=== PATIENT | male | born 1960 | race Caucasian/White ===

== ENCOUNTER → 2023-04-23 06:28 | Day surgery (SDC) | payer MEDICARE, OTHER, SELFPAY | LOC: GI 06:28 | PROVIDERS: ATTENDING PHYSICIAN Specialist | DX: Z12.11 Encounter for screening for malignant neoplasm of colon (principal); K57.30 Diverticulosis of large intestine without perforation or abscess without bleeding; K63.5 Polyp of colon; D12.0 Benign neoplasm of cecum; Z86.010 Personal history of colon polyps | CPT/HCPCS: 45385; 88305 ==

== ENCOUNTER → 2023-07-09 08:49 | Outpatient (REF) | payer MEDICARE, OTHER, SELFPAY | LOC: RAD 08:49 | PROVIDERS: ATTENDING PHYSICIAN Orthopaedic Surgery; FAMILY PHYSICIAN Nurse Practitioner Family | DX: Z96.612 Presence of left artificial shoulder joint (principal) | CPT/HCPCS: 73030 ==

== ENCOUNTER → 2023-08-01 08:31 | Outpatient (REF) | payer MEDICARE, OTHER, SELFPAY | LOC: RAD 08:31 | PROVIDERS: ATTENDING PHYSICIAN Nurse Practitioner Family | DX: R51.9 Headache, unspecified (principal) | CPT/HCPCS: 70450 ==

== ENCOUNTER → 2023-08-15 11:46 | Outpatient (REF) | payer MEDICARE, OTHER, SELFPAY | LOC: RAD 11:46 | PROVIDERS: ATTENDING PHYSICIAN Otolaryngology Facial Plastic Surgery; FAMILY PHYSICIAN Internal Medicine | DX: J32.0 Chronic maxillary sinusitis (principal); J34.2 Deviated nasal septum | CPT/HCPCS: 70486 ==

== ENCOUNTER → 2023-12-26 10:33 | Outpatient (REF) | payer MEDICARE, OTHER, SELFPAY | LOC: RAD 10:33 | PROVIDERS: ATTENDING PHYSICIAN Nurse Practitioner Family | DX: J45.909 Unspecified asthma, uncomplicated (principal); M54.50 Low back pain, unspecified | CPT/HCPCS: 71046 ==

== ENCOUNTER → 2024-03-10 07:29 | Outpatient (REF) | payer MEDICARE, OTHER, SELFPAY ==
[2024-03-10 10:21] LABS: Hematocrit 31.8 % (39.0-52.0); Hemoglobin 9.9 g/dL (13.0-18.0); Mean Corp Hgb Conc. 31.1 g/dL (33.0-37.0); Mean Corpuscular Hgb 27.4 pg (27.0-31.0); Mean Corpuscular Volume 88.1 fL (80.0-94.0); Mean Platelet Volume 8.6 fL (7.4-10.4); Platelet Count 538 10^3/uL (130-400); Red Blood Cell Count 3.61 10^6/uL (4.70-6.10); White Blood Cell Count 8.5 10^3/uL (4.8-10.8)
[2024-03-10 10:58] LABS: ALT (SGPT) 22 U/L (0-50); AST (SGOT) 27 U/L (17-59); Albumin 4.4 g/dl (3.5-5.0); Alkaline Phosphatase 96 U/L (38-126); Blood Urea Nitrogen 9 mg/dl (9-20); Calcium 9.1 mg/dl (8.4-10.2); Carbon Dioxide 28 mmol/L (22-30); Chloride 91 mmol/L (98-107); Glucose 98 mg/dl (70-99); Potassium 4.7 mmol/L (3.5-5.1); Sodium 130 mmol/L (135-145); Total Bilirubin 0.3 mg/dl (0.2-1.3); Total Protein 6.9 g/dl (6.3-8.2); eGFR > 60.00
== END ==
LOC: SDSPAT 07:29
PROVIDERS: ATTENDING PHYSICIAN Otolaryngology Facial Plastic Surgery; FAMILY PHYSICIAN Nurse Practitioner Family
DX: Z01.818 Encounter for other preprocedural examination (principal)
CPT/HCPCS: 36415; 80053; 85027; 87070; 93005

== ENCOUNTER 2024-03-20 06:38 | Day surgery (SDC) | payer MEDICARE, OTHER, SELFPAY ==
[2024-03-10 14:08] VITALS: BMI 29.4
[2024-03-20] VITALS (8 sets, daily range): BP systolic 118–133; BP diastolic 64–81; BMI 29.4
[2024-03-20] MEDS: NORMOSOL-R/PLASMALYTE-A 1000 IV (12:00)
== END 2024-03-20 15:20 | disposition home or self-care (01) ==
LOC: SDS 06:38
PROVIDERS: ATTENDING PHYSICIAN Otolaryngology Facial Plastic Surgery
DX: C32.0 Malignant neoplasm of glottis (principal); R49.0 Dysphonia
CPT/HCPCS: 31541; 88305; 88342

== ENCOUNTER 2024-04-01 06:25 | Outpatient (RCR) | payer MEDICARE, OTHER, SELFPAY | END 2024-04-01 23:59 | disposition home or self-care (01) | LOC: RPT 06:25 | PROVIDERS: ATTENDING PHYSICIAN Chiropractor Nutrition; FAMILY PHYSICIAN Nurse Practitioner Family | DX: Z47.89 Encounter for other orthopedic aftercare (principal); Z73.6 Limitation of activities due to disability; R26.2 Difficulty in walking, not elsewhere classified; M62.81 Muscle weakness (generalized); R26.89 Other abnormalities of gait and mobility; Z98.1 Arthrodesis status | CPT/HCPCS: 97112; 97162 ==

== ENCOUNTER → 2024-04-16 07:37 | Outpatient (REF) | payer MEDICARE, OTHER, SELFPAY | LOC: HWRCS 07:37 | PROVIDERS: ATTENDING PHYSICIAN Internal Medicine Cardiovascular Disease; FAMILY PHYSICIAN Nurse Practitioner Family | DX: R06.02 Shortness of breath (principal); R94.31 Abnormal electrocardiogram [ECG] [EKG]; I10 Essential (primary) hypertension | CPT/HCPCS: 78452; 93017; A9500 ==

== ENCOUNTER 2024-04-22 15:02 | Outpatient (RCR) | payer MEDICARE, OTHER, SELFPAY | END 2024-04-22 23:59 | disposition home or self-care (01) | LOC: RPT 15:02 | PROVIDERS: ATTENDING PHYSICIAN Chiropractor Nutrition; FAMILY PHYSICIAN Nurse Practitioner Family | DX: Z73.6 Limitation of activities due to disability; R26.2 Difficulty in walking, not elsewhere classified; M62.81 Muscle weakness (generalized); Z47.89 Encounter for other orthopedic aftercare; R26.89 Other abnormalities of gait and mobility; Z98.1 Arthrodesis status | CPT/HCPCS: 97010; 97110; 97140 ==

== ENCOUNTER 2024-05-16 12:24 | Emergency (ER) | payer MEDICARE, OTHER, SELFPAY ==
[2024-05-16 12:27] VITALS: BP 128/78
[2024-05-16 12:46] LABS: % Basophils 0.2 % (0-2); % Eosinophils 0.5 % (0-6); % Immature Granulocytes 0.4 % (0-0.5); % Lymphocytes 2.2 % (20.5-51.1); % Monocytes 6.9 % (1.7-9.3); % Neutrophils 89.8 % (42.2-75.2); Absolute Eosinophils 0.1 10^3/uL (0-0.7); Absolute Immature Granulocytes 0.1 10^3/uL (0-0.05); Absolute Lymphocytes 0.3 10^3/uL (1.2-3.4); Absolute Monocytes 0.9 10^3/uL (0.1-0.6); Absolute Neutrophils 11.4 10^3/uL (1.4-6.5); Hematocrit 30.8 % (39.0-52.0); Mean Corp Hgb Conc. 32.5 g/dL (33.0-37.0); Mean Corpuscular Hgb 25.3 pg (27.0-31.0); Mean Platelet Volume 8.4 fL (7.4-10.4); Nucleated Red Blood Cells % 0 % (-); Platelet Count 379 10^3/uL (130-400); Red Blood Cell Count 3.95 10^6/uL (4.70-6.10); Red Cell Dist. Width 16.4 % (11.5-14.5); White Blood Cell Count 12.7 10^3/uL (4.8-10.8)
[2024-05-16 12:59] LABS: Lactic Acid 1.1 mmol/L (0.7-2.0)
[2024-05-16 13:13] LABS: ALT (SGPT) 21 U/L (0-50); AST (SGOT) 26 U/L (17-59); Albumin 3.9 g/dl (3.5-5.0); Alkaline Phosphatase 84 U/L (38-126); Blood Urea Nitrogen 11 mg/dl (9-20); Calcium 9.1 mg/dl (8.4-10.2); Carbon Dioxide 26 mmol/L (22-30); Chloride 94 mmol/L (98-107); Glucose 181 mg/dl (70-99); Potassium 4.1 mmol/L (3.5-5.1); Sodium 129 mmol/L (135-145); Total Bilirubin 0.4 mg/dl (0.2-1.3); Total Protein 6.2 g/dl (6.3-8.2); eGFR > 60.00
[2024-05-16] MEDS: NSS 1000 IV (15:50)
[2024-05-16 16:04] VITALS: BP 123/79
[2024-05-16] MEDS: METAMUCIL, KONSYL 1 PACKET PO (16:55)
[2024-05-16] MEDS: COLACE 100 MG PO (16:55)
[2024-05-16] MEDS: NEURONTIN 300 MG PO (16:55)
[2024-05-16 17:22] VITALS: BP 136/81
--- NOTE | 2024-05-16 17:44 | ED.GENMED ---
History of Present Illness
General
Chief Complaint: Swallowing Problem
Time Seen by Provider: 05/16/24 15:09
History of Present Illness
History of Present Illness:
63-year-old male with history of laryngeal cancer currently undergoing radiation treatments at [facility] presents the emergency department for evaluation of voice hoarseness and copious oropharyngeal and nasal secretions over the past
several days. Reports night sweats and chills but denies objective fever. He is scheduled to restart radiation on Saturday. Was referred to the ED by his radiation oncologist for CT scans of the sinuses and neck as well as blood cultures. He is
having increasing pain making it difficult to tolerate p.o. fluids however he does have oxycodone at home and states this makes the swallowing process tolerable
Past History
Past History
ED Past Medical History: Asthma, GERD and Other (Macular degeneration, arthritis)
ED Past Surgical History: Orthopedic (Cervical and lumbar fusion)
Social History
Tobacco: Non-smoker
Personal:
Living: with family
Family History
Family History: Other (Noncontributory)
Review of Systems
Review of Systems
Allergies reviewed?: Yes
All Other Systems: ROS reviewed and negative except as documented in HPI and ROS
Phy Exam
Physical Exam
Physical Exam:
GEN: Well appearing, NAD, WDWN
HEENT: Oral mucosa moist, no scleral icterus. Markedly hoarse voice, mild stridor
Cardiac: Regular rate
Lung: No respiratory distress, no tachypnea
MSK: No gross deformity or injuries
Skin: Good color, no pallor or jaundice, no rashes
Neuro: AO x3, moves all extremities freely
Psych: Calm, cooperative
Course
Orders/Labs/Results
Orders:
Orders
05/16/24 12:38
Complete Blood Count/With Diff Urgent
Comprehensive Metabolic Panel Urgent
Lactic Acid Q4H
Comment: ON ICE, CANCEL 2ND ORDER IF FIRST LACTIC ACID LEVEL <2
Blood Culture Q20M
ZAY Source: Blood/Venous
Specimen Description:
Comment: Urgent from separate sites. If patient screens positive for possible sepsis
05/16/24 15:27
CT Neck With Iv Contrast Urgent
Comment:
Reason For Exam: hoarseness, on radiation treatments
CT Sinuses W/o Iv Contrast Urgent
Comment:
Reason For Exam: nasal discharge/active radiation
05/16/24 15:28
0.9% Sodium Chloride 1000 ml [Nss] 1,000 ml IV BOLUS
05/16/24 15:51
Blood Culture Q20M
ZAY Source: Blood/Venous
Specimen Description:
Comment: Urgent from separate sites. If patient screens positive for possible sepsis
05/16/24 16:47
Docusate Sodium [Colace] 100 mg PO NOW STA
Gabapentin [Neurontin] 300 mg PO NOW STA
Psyllium [Metamucil, Konsyl] 1 packet PO NOW STA
Abnormal Lab Results
05/16/24
12:38
WBC 12.7 H 10^3/uL
(4.8-10.8)
RBC 3.95 L 10^6/uL
(4.70-6.10)
Hgb 10.0 L g/dL
(13.0-18.0)
Hct 30.8 L %
(39.0-52.0)
MCV 78.0 L fL
(80.0-94.0)
MCH 25.3 L pg
(27.0-31.0)
MCHC 32.5 L g/dL
(33.0-37.0)
RDW 16.4 H %
(11.5-14.5)
Abs Immat Gran (auto) 0.1 H 10^3/uL
(0-0.05)
Absolute Neuts (auto) 11.4 H 10^3/uL
(1.4-6.5)
Absolute Lymphs (auto) 0.3 L 10^3/uL
(1.2-3.4)
Absolute Monos (auto) 0.9 H 10^3/uL
(0.1-0.6)
Neutrophils % 89.8 H %
(42.2-75.2)
Lymphocytes % 2.2 L %
(20.5-51.1)
Sodium 129 L mmol/L
(135-145)
Chloride 94 L mmol/L
(98-107)
Glucose 181 H mg/dl
(70-99)
Total Protein 6.2 L g/dl
(6.3-8.2)
05/16/24 12:38
05/16/24 12:38
Vital Signs
Initial and Last Documented VS:
Initial Vital Signs
Temp Pulse Resp BP Pulse Ox
99.5 F 94 16 128/78 95
05/16/24 12:27 05/16/24 12:27 05/16/24 12:27 05/16/24 12:27 05/16/24 12:27
Last Documented Vital Signs
Temp Pulse Resp BP Pulse Ox
98.9 F 86 16 136/81 92
05/16/24 16:04 05/16/24 17:58 05/16/24 12:27 05/16/24 17:22 05/16/24 17:58
MDM/Problems Addressed
MDM/Problems Addressed:
Imaging reveals anticipated postradiation changes. Labs are reassuring. Blood cultures in process. Case discussed with radiation oncology on-call at [facility], no treatment recommended at this time, will follow blood cultures
*Critical Care Note
Total Time (30-74mins, 75-104mins- exclusive of procedures): Not Applicable
ED Attending Note
-
Portions of this chart may have been created with voice recognition software.� Occasional wrong word or��sound alike� substitutions may have occurred due to the inherent limitations of voice recognition software.
Discharge Plan
Departure
Patient Disposition: Home (Routine Discharge)
Date of Disposition: 05/16/24
Time of Disposition: 17:45
Patient with high blood pressure during this ER visit?: No
Discharge Problem:
Hoarseness
Instructions: Sore Throat, Adult (DC)
Prescriptions:
No Action
valacyclovir [Valtrex] 1,000 MG tablet
1,000 mg PO DAILYPRN PRN (Reason: herpes outbreak)
albuterol sulfate [Proventil HFA] 90 MCG/PUFF HFA aerosol inhaler
1 puff inhalation PRN PRN (Reason: asthma symptoms)
alfuzosin 10 MG tablet extended release 24 hr
10 mg PO DAILY
Patient Comments:
budesonide-formoterol [Symbicort] 1 PUFF HFA aerosol inhaler
2 puff inhalation DAILY
cetirizine [Zyrtec] 10 mg Tablet
10 mg PO DAILY@1600 Qty: 0
omeprazole magnesium [Prilosec OTC] 20 MG tablet,delayed release (DR/EC)
20 mg PO DAILY
cyanocobalamin (vitamin B-12) 1,000 MCG tablet
1,000 mcg PO MOWE
cholecalciferol (vitamin D3) [Vitamin D3] 2,000 UNIT capsule
2,000 unit PO DAILY
amlodipine 2.5 mg tablet
2.5 mg PO DAILY
fluticasone propionate 50 mcg/actuation Dunbar,Suspension
1 spray INTRANASAL BID
vitamin B complex Capsule
1 cap PO TH
krill oil 500 mg Capsule
500 mg PO DAILY@1400
oxcarbazepine 150 mg Tablet
450 mg PO BID
gabapentin 600 mg Tablet
600 mg PO TID
duloxetine 20 mg Capsule, Delayed Rel Sprinkle
20 mg PO DAILY
budesonide-formoterol [Symbicort] 80-4.5 mcg/actuation Hfa Aerosol Inhaler
1 puff INHALATION HS
Tylenol
1,000 mg PO Q6H PRN (Reason: pain, headache)
fexofenadine [Mini] 180 mg Tablet
180 mg PO Q24H
aspirin 81 mg Tablet
81 mg PO DAILY
mupirocin 2 % Ointment
TOPICAL BID
Patient Comments:
patient used 2 days prior to surgery and the morning of surgery.
zolpidem 5 mg Tablet
5 mg PO HS
Patient Comments:
this is only for 2 weeks per patient.
Syfovre (PF) 15 mg /0.1 mL Solution
15 mg INTRAVITREAL DIRECTED
Rx Instructions:
every 6 weeks
Nicotinamide
600 mg PO DAILY
PreserVision AREDS
1 tab PO DAILY
Referrals:
Sharlene Kimbrough CRNP [Family Provider] -
Activity Restrictions/Additional Instructions:
Call your Oncology team at [facility] tomorrow if symptoms worsen
Your blood cultures will take up to 5 days to result. If they show any positive growth, you will be called as asked to return to the ER for admission
Interventions
Interventions:
*Risk Screen - Suicide Last Done: 05/16/24 12:27
*General Assessment Last Done: 05/16/24 15:39
*Neglect/Abuse Screening Last Done: 05/16/24 12:27
*ED- Fall Risk Assessment Last Done: 05/16/24 15:39
*ED COVID-19 Vaccine History Last Done: 05/16/24 15:39
*Nursing Disposition Last Done: 05/16/24 17:59
ED- Pulmonary Assessment Last Done: 05/16/24 16:05
Discharge Date and Time
Discharge Date/Time: 05/16/24 18:00
Print Language: DJIBOUTIAN
== END 2024-05-16 18:00 | disposition home or self-care (01) ==
LOC: EMR 12:24
PROVIDERS: Emergency Medicine; EMERGENCY PHYSICIAN Emergency Medicine; FAMILY PHYSICIAN Nurse Practitioner Family
DX: R49.0 Dysphonia (principal); C14.0 Malignant neoplasm of pharynx, unspecified; J45.909 Unspecified asthma, uncomplicated; Z92.3 Personal history of irradiation
CPT/HCPCS: 99284; 96360; 70486; 70491; 80053; 83605; 85025; 87040; Q9967

== ENCOUNTER 2024-07-23 06:06 | Outpatient (RCR) | payer MEDICARE, OTHER, SELFPAY | END 2024-07-23 23:59 | disposition home or self-care (01) | LOC: RPT 06:06 | PROVIDERS: FAMILY PHYSICIAN Internal Medicine | DX: Z47.89 Encounter for other orthopedic aftercare (principal); Z73.6 Limitation of activities due to disability; M62.81 Muscle weakness (generalized); R26.2 Difficulty in walking, not elsewhere classified; Z98.1 Arthrodesis status; Z85.89 Personal history of malignant neoplasm of other organs and systems; Z92.3 Personal history of irradiation | CPT/HCPCS: 97110; 97140; 97162 ==

== ENCOUNTER 2024-08-31 09:19 | Outpatient (RCR) | payer MEDICARE, OTHER, SELFPAY | END 2024-08-31 23:59 | disposition home or self-care (01) | LOC: RPT 09:19 | PROVIDERS: FAMILY PHYSICIAN Internal Medicine | DX: Z47.89 Encounter for other orthopedic aftercare (principal); Z73.6 Limitation of activities due to disability; M62.81 Muscle weakness (generalized); R26.2 Difficulty in walking, not elsewhere classified; Z98.1 Arthrodesis status; M43.26 Fusion of spine, lumbar region; Z85.89 Personal history of malignant neoplasm of other organs and systems; Z92.3 Personal history of irradiation | CPT/HCPCS: 97010; 97110; 97140 ==

== ENCOUNTER 2024-09-28 09:00 | Outpatient (RCR) | payer MEDICARE, OTHER, SELFPAY | END 2024-09-28 23:59 | disposition home or self-care (01) | LOC: RPT 09:00 | PROVIDERS: FAMILY PHYSICIAN Internal Medicine | DX: Z47.89 Encounter for other orthopedic aftercare (principal); M62.81 Muscle weakness (generalized); M43.26 Fusion of spine, lumbar region; Z98.1 Arthrodesis status; Z73.6 Limitation of activities due to disability; R26.2 Difficulty in walking, not elsewhere classified; Z85.89 Personal history of malignant neoplasm of other organs and systems; Z92.3 Personal history of irradiation | CPT/HCPCS: 97010; 97110; 97140 ==

== ENCOUNTER 2024-10-29 08:56 | Outpatient (RCR) | payer MEDICARE, OTHER, SELFPAY | END 2024-10-29 23:59 | disposition home or self-care (01) | LOC: RPT 08:56 | PROVIDERS: FAMILY PHYSICIAN Internal Medicine | DX: Z47.89 Encounter for other orthopedic aftercare (principal); M62.81 Muscle weakness (generalized); M43.26 Fusion of spine, lumbar region; R26.2 Difficulty in walking, not elsewhere classified; Z98.1 Arthrodesis status; Z73.9 Problem related to life management difficulty, unspecified; Z73.6 Limitation of activities due to disability; Z85.89 Personal history of malignant neoplasm of other organs and systems; Z92.3 Personal history of irradiation | CPT/HCPCS: 97010; 97110; 97140 ==

== ENCOUNTER → 2024-12-09 13:32 | Outpatient (REF) | payer MEDICARE, OTHER, SELFPAY | LOC: RAD 13:32 | PROVIDERS: ATTENDING PHYSICIAN Internal Medicine Hematology & Oncology; FAMILY PHYSICIAN Family Medicine | DX: C32.9 Malignant neoplasm of larynx, unspecified (principal); D50.8 Other iron deficiency anemias; R19.02 Left upper quadrant abdominal swelling, mass and lump | CPT/HCPCS: 74160; Q9967 ==

== ENCOUNTER → 2025-01-06 15:54 | Outpatient (REF) | payer MEDICARE, OTHER, SELFPAY | LOC: RAD 15:54 | PROVIDERS: ATTENDING PHYSICIAN Family Medicine | DX: R91.8 Other nonspecific abnormal finding of lung field (principal) | CPT/HCPCS: 71260; Q9967 ==

== ENCOUNTER → 2025-02-09 11:42 | Outpatient (REF) | payer MEDICARE, OTHER, SELFPAY | LOC: RAD 11:42 | PROVIDERS: ATTENDING PHYSICIAN Orthopaedic Surgery; FAMILY PHYSICIAN Family Medicine | DX: Z96.612 Presence of left artificial shoulder joint (principal); R93.7 Abnormal findings on diagnostic imaging of other parts of musculoskeletal system | CPT/HCPCS: 73202; Q9967 ==